=== PATIENT | female | born 1965 | race Caucasian/White ===

== ENCOUNTER 2017-03-09 11:47 | Emergency (ER) | payer SELFPAY ==
[2017-03-09 11:53] VITALS: BP 142/79; PULSE 79; TEMP 98; BMI 29.1
[2017-03-09] MEDS ORDERED: ACETAMINOPHEN 325 MG TABLET (FP) PO ONE (12:50)
--- NOTE | 2017-03-09 12:50 | PDOC ---
History of Present Illness - General Chief Complaint: Injury Stated Complaint: INJURY Time Seen by Provider: 03/09/17 12:29 History Source: Patient Exam Limitations: Language Barrier (Daughter translating. 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) Past History - Travel Traveled outside of the country in the last 30 days: No Close contact w/someone who was outside of country & ill: No - Past Medical History Allergies/Adverse Reactions: Allergies Allergy/AdvReac Type Severity Reaction Status Date / Time No Known Allergies Allergy Verified 03/09/17 11:49 Home Medications: Ambulatory Orders Ibuprofen 800 mg PO TID #30 tablet 03/09/17 COPD: No - Suicide/Smoking/Psychosocial Hx Smoking Status: No Smoking History: Never smoked Have you smoked in the past 12 months: No Number of Cigarettes Smoked Daily: 0 Information on smoking cessation initiated: No Hx Alcohol Use: No Drug/Substance Use Hx: No Substance Use Type: None Review of Systems - Review of Systems Able to Perform ROS?: Yes Is the patient limited Upper Sorbian proficient: No *Physical Exam - Vital Signs Last Vital Signs Temp Pulse Resp BP Pulse Ox 98.0 F 79 18 142/79 100 03/09/17 11:50 03/09/17 11:50 03/09/17 11:50 03/09/17 11:50 03/09/17 11:50 *DC/Admit/Observation/Transfer Diagnosis at time of Disposition: Arm pain, right, Leg pain, left Fall Qualifiers: Encounter type: initial encounter Qualified Code(s): W19.XXXA - Unspecified fall, initial encounter - Discharge Dispostion Disposition: HOME Condition at time of disposition: Good Admit: No - Referrals Referrals: Adam Pitts MD [Staff Physician] - - Patient Instructions Printed Discharge Instructions: DI for Leg Pain Additional Instructions: You fell today after tripping on the sidewalk. Your x-rays were negative for fractures. Please use heat on the areas to help reduce pain and swelling. You may take ibuprofen 800 mg 3 times a day to help with your symptoms. If your arm pain and leg pain are not getting better in the next 2-3 days, please follow up with orthopedics. A referral has been provided. Return to the emergency department if you have worsening pain in your leg or arm , numbness and tingling, weakness, bladder or bowel incontinence, or have any changes in your symptoms. Te caste hoy despus de tropezar en la acera. Brittany debbie X fueron negativos para las fracturas. Utilice calor en las reas para ayudar a reducir el dolor y la hinchazn. Puede dylan ibuprofeno 800 mg 3 veces al da para ayudar con brittany s ntomas. Si el dolor en el brazo y el dolor en las piernas no mejoran en los pr ximos 2 o 3 leyva, siga con ortopedia. Se berger proporcionado [place] referencia. Regrese al servicio de urgencias si tiene un empeoramiento del dolor en la pierna o el brazo, entumecimiento y hormigueo, debilidad, incontinencia urinaria o intestinal o si presenta algn cambio en brittany sntomas. Print Language: TURKISH - Post Discharge Activity Forms/Work/School Notes: Back to Work
[2017-03-09] MEDS ORDERED: ACETAMINOPHEN 325 MG TABLET (FP) ONE (12:53)
== END 2017-03-09 13:52 | disposition home or self-care (01) ==
LOC: JERFT 11:47
DX: M79.605 Pain in left leg (principal); M79.601 Pain in right arm; W01.0XXA Fall on same level from slipping, tripping and stumbling without subsequent striking against object, initial encounter; Y93.89 Activity, other specified; Y92.410 Unspecified street and highway as the place of occurrence of the external cause
CPT/HCPCS: 73070-TC-RT; 73523-TC; 99281-25

== ENCOUNTER 2022-02-18 20:37 | Emergency (ER) | payer OTHER, BC ==
[2022-02-18 20:41] VITALS: BP 147/80; PULSE 75; RESP 18; TEMP 98; BMI 27.4
[2022-02-18] MEDS ORDERED: BACITRACIN 15 GM TUBE TOPICAL OINTMENT ONE (22:54)
== END 2022-02-19 00:02 | disposition home or self-care (01) ==
LOC: JERFT 20:37
DX: S90.111A Contusion of right great toe without damage to nail, initial encounter (principal); W20.8XXA Other cause of strike by thrown, projected or falling object, initial encounter
CPT/HCPCS: 73630-TC-RT-FY; 99283-25